=== PATIENT | female | born 1960 | race Caucasian/White ===

== ENCOUNTER 2022-09-12 14:39 | Outpatient (CLI) | payer BC | END 2022-09-12 14:40 | disposition home or self-care (01) | LOC: CSHMAMMO 14:39 | PROVIDERS: ATTEND Family Medicine | DX: Z12.31 Encounter for screening mammogram for malignant neoplasm of breast (principal) | CPT/HCPCS: 77063; 77067 ==

== ENCOUNTER 2022-10-09 08:24 | Day surgery (SDC) | payer BC ==
[2022-10-05 12:46] VITALS: BMI 23.8
[2022-10-09] MEDS ORDERED: PROPOFOL 20 ML ONE ×2 (09:51→09:54)
[2022-10-09] MEDS ORDERED: Lidocaine 1% PF 5 ML VIAL ONE (09:51)
[2022-10-09] MEDS ORDERED: ePHEDrine Sulfate 50 MG/10 ML VIAL ONE (10:06)
== END 2022-10-09 11:10 | disposition home or self-care (01) ==
LOC: CSHSDC 08:24
PROVIDERS: ATTEND Internal Medicine Gastroenterology
DX: Z12.11 Encounter for screening for malignant neoplasm of colon (principal); K63.5 Polyp of colon; D12.0 Benign neoplasm of cecum; D12.5 Benign neoplasm of sigmoid colon; K64.9 Unspecified hemorrhoids; K57.30 Diverticulosis of large intestine without perforation or abscess without bleeding; F41.9 Anxiety disorder, unspecified; F32.A Depression, unspecified; J45.909 Unspecified asthma, uncomplicated; E78.5 Hyperlipidemia, unspecified; Z87.891 Personal history of nicotine dependence; Z88.0 Allergy status to penicillin; Z88.2 Allergy status to sulfonamides; Z88.8 Allergy status to other drugs, medicaments and biological substances; Z79.899 Other long term (current) drug therapy
CPT/HCPCS: 88305; J2704